=== PATIENT | male | born 1990 | race Caucasian/White ===

== ENCOUNTER 2016-12-05 18:34 | Observation (INO) | payer OTHER ==
[~2016-12-05] VITALS: Ht 170.2 cm; Wt 67.1 kg
[2016-12-05 18:40] VITALS: BP 141/80; PULSE 78; RESP 16; O2SAT 99
[2016-12-05 19:42] LABS: BASOPHILS % (AUTO) 0.1 % (0-3); EOSINOPHILS % (AUTO) 1.1 % (0-5); Mean Corpuscular Hemoglobin 30.9 pg (27.0-35.0); Mean Corpuscular Volume 85.3 fL (81-100); Platelet Count 176 bil/L (150-400)
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
[2016-12-05 20:01] LABS: TROPONIN T < 0.010 ug/L (0.0-0.011)
[2016-12-05 20:04] LABS: Magnesium 1.9 mg/dL (1.6-2.6)
--- NOTE | 2016-12-05 20:12 | DRSVH ---
PROCEDURE: X-RAY CHEST ONE VIEW, PORTABLE ([id number]) INDICATIONS: CHEST PAIN TECHNIQUE: One view of the chest was acquired. COMPARISON: 11/07/14. FINDINGS: Surgical changes and devices: None. Lungs and pleura: No pleural effusions or pneumothorax. Lungs are clear. Mediastinum: Mediastinal contours appear normal. Heart size is normal. Bones and chest wall: No suspicious bony lesions. Overlying soft tissues appear unremarkable. IMPRESSION: 1. No acute cardiopulmonary disease. Dictated by: Paxton Freitas M.D. on 12/05/2016 at 20:10 Approved by: Paxton Freitas M.D. on 12/05/2016 at 20:10
[2016-12-05] MEDS ORDERED: HYDROmorphone 0.5 mg/0.5 mL iSecure Syringe IVPUSH ONE (20:40)
[2016-12-05] MEDS ORDERED: Ondansetron 2 mg/mL 2 mL Inj IVPUSH ONE (20:40)
[2016-12-05 20:56] VITALS: BP 140/75; PULSE 71; RESP 14; O2SAT 97
[2016-12-05] MEDS ORDERED: Ondansetron 2 mg/mL 2 mL Inj IVPUSH PRN (21:10)
[2016-12-05] MEDS ORDERED: Alum-Mag Hydrox-Simeth 30 mL Suspension PO PRN (21:10)
[2016-12-05] MEDS ORDERED: Polyethylene Glycol (PEG) 17 Gm Powder PO PRN (21:10)
[2016-12-05 22:34] VITALS: PULSE 80
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
[2016-12-06 01:46] VITALS: BP 126/62; PULSE 69; RESP 18; O2SAT 100
[2016-12-06 04:25] VITALS: BP 118/71; PULSE 53; RESP 16; O2SAT 100
--- NOTE | 2016-12-06 04:45 | NUR ---
Admit to [facility] received phone report from ED at 2140. pt arrived to floor at 2201 per gita, able to ambulate to bed, pt accompanied by or scrub tech and significant other, pt a/o x4, able to make needs known, vitals taken stable, telemetry leads on, noted 20G saline locked IV at left AC, patent, oriented pt to room and call light, reinforced teaching on NPO status after Midnight for am ECHO, qhrly checks, call light in reach.
--- NOTE | 2016-12-06 05:04 | NUR ---
Cardiac Rhythm at 0, received call from telecommunication equipment repairer, informed of change in cardiac rhythm Sinus with HR at 38-40's 424, vitals checked, within baseline, pt denies pain and discomfort, at 0, received call from telecommunication equipment repairer, pt's rhythm junctional with HR at 60, 436, RT in 12 lead EKG done, showing sinus with LBBB HR at 63, pt denies any chest pain/discomfort/sob, instructed to call right away, call light in reach.
[2016-12-06 06:15] VITALS: BP 132/76; PULSE 71; RESP 16; O2SAT 99
[2016-12-06 08:42] LABS: Mean Corpuscular Hemoglobin 30.6 pg (27.0-35.0); Mean Corpuscular Volume 85.4 fL (81-100)
--- NOTE | 2016-12-06 08:45 | NUR ---
patient transferred to [facility] for stress test. mine technician informed.
[2016-12-06 09:21] LABS: Magnesium 2.2 mg/dL (1.6-2.6)
[2016-12-06 10:02] VITALS: PULSE 72
[2016-12-06 11:33] VITALS: BP 128/75; PULSE 76; RESP 18; O2SAT 95
--- NOTE | 2016-12-06 11:33 | NUR ---
patient returned from [facility]. cardiac monitor technician notified.
--- NOTE | 2016-12-06 14:24 | DRSVH ---
PROCEDURE: 1 DAY PHARMACOLOGICAL STRESS TEST Rest and pharmacological stress myocardial perfusion SPECT with gated imaging and ejection fraction RADIOPHARMACEUTICAL: 8.7 mCi Tc-99m tetrafosmin IV at rest and a 4.6 mCi Tc-99m tetrafosmin IV at pea k effect of pharmacological stress. A [id number] was performed. INDICATIONS: 26-year-old male with chest pain and abnormal EKG (left bundle-branch block). TECHNIQUE: Radiopharmaceutical was injected at peak stress test, and also at rest. SPECT images wer e obtained. SPECT myocardial perfusion images were displayed in short axis, horizontal long axis, an d vertical long axis views. Gated images were reviewed using [employer] software. COMPARISON: None. CARDIAC STRESS: A pharmacologic stress test was performed under the supervision of an attending staff, using an infus ion of [employer]. Hemodynamic data: There is normal blood pressure and heart rate response to pharmacologic stress. Symptoms: The patient denied anginal chest pain. Aminophylline: 100 mg IV. EKG: No diagnostic changes of ischemia; no ectopy. FINDINGS: Raw data: There is good myocardial uptake of radiotracer. No significant motion artifacts. Left ventricle function: Gated images demonstrate normal left ventricular wall thickening. There is septal dyskinesia. No transient ischemic dilation. Left ventricle resting end diastolic volume is n ormal. Left ventricle stress ejection fraction is 53%; normal range is above 45%. Myocardial perfusion: There is normal distribution of activity in the right and left ventricular gabriel cardium. No fixed or reversible perfusion defects. IMPRESSION: 1. Normal myocardial perfusion images. 2. Normal left ventricular volume and systolic function. 3. No chest pain. Non-diagnostic EKG for ischemia. PQRS ATTESTATIONS: Measure 322 - Is this imaging test primarily performed on a low-risk surgery patient for preoperative evaluation within 30 days preceding their low-risk non-cardiac surgery? Low-risk surgery is defined as cardiac or myocardial infarction less than 1%, including (but not limited to) endoscopic pr ocedures, superficial procedures, cataract surgery, and excisional breast surgery: Answer: No Measure 323 - Is this imaging test performed primarily for the monitoring of an asymptomatic patient who had percutaneous coronary intervention on the visit date or within 2 years of the visit date? An swer: No Measure 324 - Is this imaging test performed primarily for the initial detection and risk assessment on an asymptomatic, low coronary heart disease patient? Low CHD risk definition = clinicians should consider the maximum number of available patient factors used to estimate risk based on [place] (A TP III criteria), typically age, gender, diabetes, smoking status, and use of blood pressure medicati on, and integrate age appropriate estimates for missing elements, such as LDL or standard blood press ure. Answer: No Dictated by: Elyse Robb M.D. on 12/06/2016 at 14:17 Approved by: Elyse Robb M.D. on 12/06/2016 at 14:23
--- NOTE | 2016-12-06 15:33 | NUR ---
Social Work Note - Screening: D/A: The Pt is a 26 y/o male that was admitted under observation status for CP resolved/left bundle branch block. The Pts PCP is MD Wero Hatfield and his insurance is [employer]. EMR reviewed. SW met with the Pt to explain role and discuss discharge planning, SW telephone number written on white board. The Pt does not have an Advanced Directive, paperwork declined. The Pt lives independently with his family in [place]. Echo and stress test results pending. The Pt denies any needs at this time. SW to follow if needs arise. P: The Pt will likely discharge home when medically stable with family providing POV transportation. The Pt denies any needs at this time. SW to follow if needs arise. Melody Scales MSW Loader Operator YAHIR Arauz
--- NOTE | 2016-12-06 15:54 | DRSVH ---
[facility] [address] [place] [address] Echocardiogram Report Name: RIKI BARAHONA SStudy Date: 12/06/2016 Height: 67 in Hospital Exam Location: [facility] Weight: 150 lb Gender: Male BSA: 1.8 m2 : 1990 Age: 26 yrs BP: 118/81 mmHg Reason For Study: Chest pain, LBBB Ordering Physician: HOSPITALIST [facility] Referring Physician: JIMI ALEXANDER Interpretation Summary The left ventricle is normal in size. Left ventricular systolic function is borderline reduced. Left ventricular ejection fraction is estimated to be 50%. There is a significant dyssynchronous contraction pattern, consistent with a conduction abnormality. There are no focal wall motion abnormalities. The right ventricle is normal in size and function. The right ventricular systolic pressure is estimated at 25 mmHg assuming a right atrial pressure of 3 mm Hg. The left atrial size is normal. There is no significant valvular heart disease. The aortic root is normal size. Procedure: A two-dimensional transthoracic echocardiogram with color flow and Doppler was performed. The study quality was technically good. There is no prior echocardiogram noted for this patient. The patient had a bundle branch block rhythm during the exam. Left Ventricle: The left ventricle is normal in size. There is normal left ventricular wall thickness. Left ventricular systolic function is borderline reduced. Left ventricular ejection fraction is estimated to be 50%. There is a significant dyssynchronous contraction pattern, consistent with a conduction abnormality. There are no focal wall motion abnormalities. Assessment of diastolic parameters indicates normal left ventricular diastolic function and normal filling pressures. Right Ventricle: The right ventricle is normal in size and function. Atria: The left atrial size is normal. Right atrial size is normal. The interatrial septum is intact with no evidence for an atrial septal defect. Mitral Valve: The mitral valve is normal. There is trace mitral regurgitation. Aortic Valve: The aortic valve is normal in structure and function. No aortic regurgitation is present. Tricuspid Valve: The tricuspid valve is normal. There is mild tricuspid regurgitation. The right ventricular systolic pressure is estimated at 25 mmHg assuming a right atrial pressure of 3 mm Hg. Pulmonic Valve: The pulmonic valve leaflets are thin and pliable; valve motion is normal. There is trace pulmonic regurgitation. There is no significant valvular heart disease. Great Vessels: The aortic root is normal size. The dimensions of the ascending aorta are normal. The pulmonary artery is normal size. The IVC is of normal diameter and collapses greater than 50% with a sniff. This suggests a low right atrial pressure of 3 mm Hg. Pericardium/ Pleura There is no pericardial effusion. There is no pleural effusion. MMode/2D Measurements & Calculations LVIDd: 4.0 cm RA long axis LVOT diam: 2.2 cm LVIDs: 3.2 cm LA A2 area: 15.8 cm Ao root diam FS: 20.6 % LA A4 area: 14.6 cm RA area EPSS: 0.37 cm LA length (vol) asc Aorta Diam IVSd: 0.97 cm : 15.5 cm LVPWd: 0.93 cm LA vol: 44.5 ml RA vol Ao Arch Diam (Prox LA vol index : 48.6 ml Trans): 2.4 cm RA : 27.2 mm2 IVC diam: 1.5 cm LV aldridge. diameter/BSA LV sys. diameter/BSA RVD1 (basal) RVD2 (mid): 2.9 cm (cm/m^2): 2.2 (cm/m^2): 1.8 TAPSE: 1.4 cm Doppler Measurements & Calculations Ao V2 max MV E max jason MV E/A: 1.7 TR max jason : 132.7 cm/sec : 68.3 cm/sec Med Peak E' Jason : 233.6 cm/sec Ao max P.0 mmHg MV A max jason TR max PG Ao mean P.9 mmHg : 39.1 cm/sec E/E' med: 10.0 : 21.8 mmHg LVOT Max Jason Lat Peak E' Jason PA V2 max : 104.5 cm/sec : 95.1 cm/sec E/E' lat: 5.6 PA mean PG CHERI(I,D): 2.8 cm E/e' average: 7.8 : 1.6 mmHg sev ratio: 0.73 MV dec time: 0.13 sec Ao V2 mean LV V1 max PG PA V2 mean : 94.5 cm/sec : 58.3 cm/sec Ao V2 VTI LV V1 VTI: 18.6 cm PA pr(Accel) : 29.2 mmHg CHERI(V,D): 3.1 cm2 CHERI indexed to BSA (cm^2/m^2): 1.6 Reading Physician:PM
--- NOTE | 2016-12-06 16:59 | PCM.DIMED ---
Discharge Instructions Date of Service Dec 06, 2016 Dates of Hospitalization Dec 05, 2016 at 21:11 Discharge Diagnosis Discharge Diagnosis Chest pain, probable Auhfn-Ydzsnphdm-Aaaiq syndrome/conduction abnormality Test Results Echocardiogram shows conduction delay, treadmill Myoview stress test normal no evidence of ischemia Diet No restrictions Activity No restrictions Call your provider Other (palpitations) Patient Instructions Follow-up Provider: [facility] Follow-up with PCP in: 1 week Provider: Olivier Arias MD Follow-up in: Other (call) Attending's Statement This becomes a significant abnormality if you are beginning to experience palpitations, if that is happening go to the emergency room. Ho Rodriguez MD Dec 06, 2016 16:59
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
== END 2016-12-06 19:45 | disposition home or self-care (01) ==
LOC: SED 18:34 → MOC 21:11
PROVIDERS: ADMIT Hospitalist; ATTEND Hospitalist
DX: I45.6 Pre-excitation syndrome (principal); R07.9 Chest pain, unspecified; R03.0 Elevated blood-pressure reading, without diagnosis of hypertension; I44.7 Left bundle-branch block, unspecified; F17.210 Nicotine dependence, cigarettes, uncomplicated; F12.90 Cannabis use, unspecified, uncomplicated
CPT/HCPCS: 36415; 71010; 78452; 80053; 82550; 83735; 83880; 84439; 84443; 84484; 85025; 85027; 85378; 93005; 93017; 96374; 96375; 96376; 99285; A9502; C8929; G0378; G0480; J0280; J1170; J2270; J2405; J2785

== ENCOUNTER 2017-01-09 03:24 | Emergency (ER) | payer OTHER ==
[~2017-01-09] VITALS: Ht 170.2 cm; Wt 69.5 kg
[2017-01-09 03:28] VITALS: BP 133/81; PULSE 67; RESP 18; O2SAT 99
--- NOTE | 2017-01-09 03:45 | ED.REPORT ---
HPI-General Illness Date of Service January 09, 2017 ED Provider: Doug Donnelly MD Pt is a 26 y.o. male with hx of LBBB who presents to the ED c/o intermittent palpitations onset 0100 today with 4 episodes, each episode lasting less than 30 seconds. He states that the palpitations woke him up from his sleep. He was seen yesterday at for similar episodes and they told him to call EMS if the episodes occurred again. He reports associated lightheadedness, SOB, and chest pain. Pt also states that he has an appointment with Dr. Durham, Cardiology, this Sunday. Nursing Notes Stated Complaint: FAST HEART BEAT, HEART PROBLEMS Chief Complaint: Dysrhythmia/Cardiac Nursing Notes Reviewed: Yes Allergies: Coded Allergies: No Known Allergies (Verified Allergy, Unknown, 12/05/16) No Active Prescriptions or Reported Meds General Time Seen by MD: 03:44 Chief Complaint Other (Palpitations) Hx Obtained From: Patient Arrived By: Walk-in Sudden in Onset?: Yes Onset Occurred: 1 - 4 hours ago Symptom Duration: Intermittent Severity: Current: No pain currently Severity: Maximum: No pain Recent Healthcare: Recent doctor visit, Recent hospitalization, Recent testing Similar Sx Previous: Yes Past Medical History Past Medical History Left bundle branch block Past Surgical History None reported. Smoking History Current Some Day Smoker Social History Other Social History: Good social support, Lives with children, Local resident Ambulatory Status Independent Review of Systems Full Review of Systems Respiratory: Reports: Shortness of breath Cardiovascular: Reports: Chest pain, Palpitations Neurologic: Reports: Lightheaded Complete sys rev & neg: except as marked. Physical Exam Vital Signs Vital Signs Date Time Temp Pulse Resp B/P Pulse Ox O2 Delivery O2 Flow Rate FiO2 01/09/17 05:50 62 18 129/81 96 Room Air 01/09/17 05:33 59 23 95/81 97 Room Air 01/09/17 03:28 36.2 67 18 133/81 99 Room Air Initial VS: Reviewed, Vital signs normal Abdomen / GI: No distention Extremities: Vascular intact, Neuro intact Skin: Warm, Dry, No cyanosis Neurologic: Alert, Oriented, Nonfocal Psychiatric: Mood/affect normal, Behavior normal, Normal thought content General/Constitutional: Awake, Alert, No acute distress, Well appearing, Well developed, Well hydrated, Well nourished, Not toxic appearing Head / Eyes: Atraumatic, Normocephalic, PERRL Respiratory / Chest: Atraumatic, Breath sounds NL, Breath sounds = bilat, No respiratory distress Cardiovascular: Heart rate NL, Regular rhythm, Heart sounds NL, Peripheral circulation NL Interpretation & Diagnostics Lab Results Interpretation Result Diagram: 01/09/1741901/09/17419 Test 01/09/17 04:20 White Blood Count 5.7th/mm3 (3.8-10.1) Red Blood Count 4.80mil/mm3 (4.40-5.80) Hemoglobin 14.7g/dL (13.8-17.2) Hematocrit 41.3% (41.0-50.0) Mean Corpuscular Volume 86.0fL (81-100) Mean Corpuscular Hemoglobin 30.6pg (27.0-35.0) Mean Corpuscular Hemoglobin Concent 35.6% (32.0-37.0) Red Cell Distribution Width 12.4% (12.3-15.4) Platelet Count 150bil/L (150-400) Neutrophils (%) (Auto) 57.9% (40-74) Lymphocytes (%) (Auto) 26.7% (14-46) Monocytes (%) (Auto) 11.5% (4-12) Eosinophils (%) (Auto) 3.5% (0-5) Basophils (%) (Auto) 0.2% (0-3) Sodium Level 137mEq/L (134-144) Potassium Level 4.1mEq/L (3.5-5.2) Chloride Level 100mEq/L (97-108) Carbon Dioxide Level 26mmol/L (18-29) Blood Urea Nitrogen 13mg/dL (6-20) Creatinine 0.81mg/dL (0.76-1.27) Estimat Glomerular Filtration Rate 122mL/min (>59) Glucose Level 101mg/dL (60-99) Calcium Level 9.6mg/dL (8.5-10.1) Magnesium Level 2.1mg/dL (1.6-2.6) Total Bilirubin 0.4mg/dL (0.0-1.2) Aspartate Amino Transf (AST/SGOT) 31U/L (0-50) Alanine Aminotransferase (ALT/SGPT) 25U/L (0-44) Alkaline Phosphatase 88U/L (25-150) Total Protein 7.0g/dL (6.4-8.4) Albumin 4.2g/dL (3.4-5.0) Thyroid Stimulating Hormone (TSH) 1.910uIU/mL (0.450-4.500) Free Thyroxine 1.26ng/dL (0.82-1.77) Hold Chavez Top Tube Received (Received) Lab values outside NL range: no clinical significance. ECG Interpretation ECG Interpretation: LBBB Time: 05:32 Interpreted by: ED physician Normal ECG Interpretation: Normal rate (73), Normal sinus rhythm Re-Eval/Medical Decision Med Decision/Clinical Course 27-year-old male who has a history of a left bundle-branch block and is in the midst of a cardiac evaluation, scheduled to see Dr. Durham on Sunday. He complained of short episodes of tachycardia several times today. He had no ectopy the entire time that he was here in the emergency room. His EKG does show a left bundle branch block without other abnormalities. His labs are normal. He has been discharged home to resume his regular follow-up plan. If he has sustained tachycardia or any other symptoms he will return to the emergency room. Source of Hx: Old records Time of Eval: 05:16 Re-Evaluation/Progress Note: Pt rechecked. Discussed plan for EKG, pt understands and agrees with plan. 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 No tachycardia cardia was noted on the conveyor monitor. Your labs are all normal to include electrolytes and thyroid panel. Keep your appointment as scheduled to get the event monitor. Return here if you have sustained tachycardia. Referrals: [facility] (PCP) Scribe Attestation Portions of this note were transcribed by Jose Begum. I, personally performed the history, physical exam and medical decision-making; I reviewed and confirmed the accuracy of the information in the transcribed note. Signed by: Sandra Carter, 01/09/17 and 0297. copies to: Myles Durham MD; [facility] Doug Donnelly MD January 09, 2017 03:45 JOSE BEGUM January 09, 2017 03:54
[2017-01-09 04:28] LABS: BASOPHILS % (AUTO) 0.2 % (0-3); EOSINOPHILS % (AUTO) 3.5 % (0-5); MONOCYTES % (AUTO) 11.5 % (4-12); Mean Corpuscular Hemoglobin 30.6 pg (27.0-35.0); NEUTROPHILS % (AUTO) 57.9 % (40-74); Platelet Count 150 bil/L (150-400)
[2017-01-09 04:59] LABS: Magnesium 2.1 mg/dL (1.6-2.6)
[2017-01-09 05:33] VITALS: BP 95/81; PULSE 59; RESP 23; O2SAT 97
[2017-01-09 05:50] VITALS: BP 129/81; PULSE 62; RESP 18; O2SAT 96
== END 2017-01-09 05:42 | disposition home or self-care (01) ==
LOC: SED 03:24
DX: I42.8 Other cardiomyopathies (principal); I47.2 Ventricular tachycardia; I44.7 Left bundle-branch block, unspecified; F17.200 Nicotine dependence, unspecified, uncomplicated

== ENCOUNTER 2017-03-21 01:34 | Day surgery (SDC) | payer OTHER ==
[~2017-03-21] VITALS: Ht 170.2 cm; Wt 76.6 kg
[2017-03-21] VITALS (12 sets, daily range): BP systolic 120–137; BP diastolic 40–79; PULSE 61–73; RESP 13–20; O2SAT 95–100
[2017-03-21] MEDS ORDERED: Rocuronium 10 mg/mL 5 mL Inj ONE (01:35)
[2017-03-21] MEDS ORDERED: Dexamethasone 4 mg/mL Inj ONE (01:35)
[2017-03-21] MEDS ORDERED: Ondansetron 2 mg/mL 2 mL Inj ONE (01:35)
[2017-03-21] MEDS ORDERED: Phenylephrine/NS 100 mCg/mL 10 mL Syringe IVPUSH ONE (01:35)
[2017-03-21] MEDS ORDERED: Propofol 10,000 mCg/mL 20 mL Inj ONE (01:35)
[2017-03-21] MEDS ORDERED: Glycopyrrolate 0.2 MG/ML 1mL Inj ONE (01:35)
[2017-03-21] MEDS ORDERED: Neostigmine 1 mg/mL 10 mL Inj ONE (01:35)
[2017-03-21] MEDS ORDERED: fentaNYL-PF 50 mCg/mL 2 mL Inj ONE (01:35)
[2017-03-21] MEDS ORDERED: Lactated Ringer's 1,000 ML IV SCH ×2 (05:00→07:41)
[2017-03-21 06:45] LABS: Mean Corpuscular Hemoglobin 30.9 pg (27.0-35.0); NEUTROPHILS % (AUTO) 62.4 % (40-74)
[2017-03-21 06:49] LABS: BASOPHILS % (AUTO) 0.1 % (0-3); EOSINOPHILS % (AUTO) 2.4 % (0-5); MONOCYTES % (AUTO) 9.3 % (4-12); Mean Corpuscular Volume 84.1 fL (81-100); Platelet Count 162 bil/L (150-400)
[2017-03-21] MEDS ORDERED: 0.9% Sodium Chloride 1,000 ML IV SCH (06:52)
[2017-03-21] MEDS ORDERED: CeFAZolin Inj 2 GM in IV Premix 1 EACH IV SCH (06:55)
[2017-03-21 07:22] LABS: INR 0.95 ratio
[2017-03-21] MEDS ORDERED: Heparin 10,000 Unit/1,000 mL NS Premix IV ONE (07:38)
--- NOTE | 2017-03-21 07:40 | PCM.HPANE ---
Patient Data Surgeon Admitting Provider: Attending Provider:Myles Durham MD Primary Care Physician:Clinic,[facility] Residency Other Provider:Beny Coffman Anesthesia Reason for Visit Eablf-Gxgwacwqh-Jjvwx Syndrome Ht/WT & BMI Body Mass Index Allergies Coded Allergies: No Known Allergies (Verified Allergy, Unknown, 12/05/16) Past Anesthesia History Anesthesia History: Denies:: Abnormal Airway, Anesthesia Reactions, Difficult Intubation, Fam Anesthesia Reaction, Fam Malignant Hypertherm, Malignant Hyperthermia Diabetes History Hx Diabetes?: No MRSA MRSA: No Medications Hypertension Medication: No Home Meds Incl Beta Valentina: No No Active Prescriptions or Reported Meds History History of ENT Problems?: No HEENT History: Denies:: Abnormal Airway Cataracts Difficult Intubation Dysphagia Glaucoma Hearing Problem Sinus Problem TMJ Denture Type: None Teeth Condition: Within Normal Limits Hx of Heart Problems?: Yes Cardiovascular History: Positive for:: Chest Pain Heart Murmur Irregular Heartbeat Denies:: Congestive Heart Failure Hypertension Pacemaker Thrombophlebitis Other Cardiac History: WPW Hx of Respiratory Problem?: No Respiratory History: Denies:: Asthma COPD Chest Surgery Cough Dyspnea Emphysema Hemoptysis Oxygen Administration Pneumonia Pulmonary Embolism Tuberculosis Use of C-PAP Machine Use of Inhalers / NEBS Hx Neurologic Problems?: No Neurological History: Denies:: Alzheimer's Disease CVA Dementia Dizziness Headaches Multiple Sclerosis Parkinson's Disease Peripheral Neuropathy Seizures TIA Hx of GI Problems?: No Hx of Problems?: No Hx Musculoskeletal Problems?: No Hx of Psycho/Social Problems?: No Hx Surgeries?: No Hx Any Other Health Problems?: No History Blood Transfusions: Denies:: Blood Transfuse Reaction Blood Transfusions Hx Diabetes: No Hx Alcohol Use: NoHx Substance Use: Yes (Marijuana. Denies cocaine/heroin use) Smoking Status: Current Some Day Smoker Have You Smoked inLast 12 mo: No Stop/Bang GURDEEP Risk Assessment: Low Risk, <3 Yes Risk Assessment Category Category 1A: Patient has history of documented sleep apnea, and HAS NOT received any narcotic, sedative or anesthesia administration during this stay. Category 1B: Patient has history of documented sleep apnea, and HAS received any narcotic , sedative or anesthesia administration during this stay Category 2: Patient has SUSPECTED Obstructive Sleep Apnea, and HAS received any narcotic , sedative or anesthesia administration during this stay. Category 3: Patient has SUSPECTED Obstructive Sleep Apnea and HAS NOT received narcotic, sedative or anesthesia administration during this stay. Category 4: Outpatient in Procedural Areas with known sleep apnea or who screen positive for High Risk via the STOP/BANG questionnaire. Exam Exam General Appearance: Alert, Oriented X3, Cooperative, No Acute Distress HEENT/AIRWAY: MP 2 Lungs: Clear to Auscultation, Normal Air Movement Heart: Exam Unremarkable, Regular Rate/Rhythm, No Murmurs/Rubs/Gallops Meds/Labs/Diagnostics Labs Test 03/21/17 06:25 White Blood Count 6.8th/mm3 (3.8-10.1) Red Blood Count 5.11mil/mm3 (4.40-5.80) Hemoglobin 15.8g/dL (13.8-17.2) Hematocrit 43.0% (41.0-50.0) Mean Corpuscular Volume 84.1fL (81-100) Mean Corpuscular Hemoglobin 30.9pg (27.0-35.0) Mean Corpuscular Hemoglobin Concent 36.7% (32.0-37.0) Red Cell Distribution Width 12.7% (12.3-15.4) Platelet Count 162bil/L (150-400) Neutrophils (%) (Auto) 62.4% (40-74) Lymphocytes (%) (Auto) 25.7% (14-46) Monocytes (%) (Auto) 9.3% (4-12) Eosinophils (%) (Auto) 2.4% (0-5) Basophils (%) (Auto) 0.1% (0-3) Prothrombin Time 10.2sec (8.1-12.5) Prothromb Time International Ratio 0.95ratio Sodium Level 139mEq/L (134-144) Potassium Level 3.9mEq/L (3.5-5.2) Chloride Level 104mEq/L (97-108) Carbon Dioxide Level 24mmol/L (18-29) Blood Urea Nitrogen 16mg/dL (6-20) Creatinine 0.85mg/dL (0.76-1.27) Estimat Glomerular Filtration Rate 115mL/min (>59) Glucose Level 102mg/dL (60-99) Calcium Level 9.3mg/dL (8.5-10.1) Plan Impression Patient chart reviewed, patient interviewed and anesthestic plan with risks, benefits, and alternatives discussed, and informed consent obtained. NPO per Anesth. Guidelines: Yes ASA Physical Status: ASA3 Severe Disease Anesthetic Support Modalities: Arterial Line Anesthetic Plan: GA Bene/Risks/Altern/Consents: Yes HP Complete Prior to Induction: Yes Dandre Slater MD Mar 21, 2017 07:40
[2017-03-21] MEDS ORDERED: Lactated Ringer's 500 ML IV PRN (07:41)
[2017-03-21] MEDS ORDERED: Heparin 1,000 Unit/mL 10 mL Inj ONE (07:43)
[2017-03-21] MEDS ORDERED: 0.9% Sodium Chloride 1,000 ML ONE (07:43)
[2017-03-21] MEDS ORDERED: HYDROmorphone 1 mg/mL Inj IVPUSH PRN (07:45)
[2017-03-21] MEDS ORDERED: fentaNYL-PF 50 mCg/mL 2 mL Inj IVPUSH PRN (07:45)
[2017-03-21] MEDS ORDERED: EPHEDrine Sulfate 50 mg/mL Inj IVPUSH PRN (07:45)
[2017-03-21] MEDS ORDERED: Phenylephrine 10,000 mCg/mL Inj IVPUSH PRN (07:45)
[2017-03-21] MEDS ORDERED: Ondansetron 2 mg/mL 2 mL Inj IVPUSH PRN (07:45)
[2017-03-21] MEDS ORDERED: MetoCLOpramide 5 mg/mL 2 mL Inj IVPUSH PRN (07:45)
[2017-03-21] MEDS ORDERED: Atropine 0.4 mg/mL Inj IVPUSH PRN (07:45)
[2017-03-21] MEDS ORDERED: 0.9% Sodium Chloride 100 ML ONE (08:11)
--- NOTE | 2017-03-21 11:21 | PCM.ANEP1 ---
Post Anesthesia PACU Phase 1 Assessment Vital Signs VSS recorded by RN in recovery Vital Signs Date Time Temp Pulse Resp B/P Pulse Ox O2 Delivery O2 Flow Rate FiO2 03/21/17 06:00 36.8 66 15 120/76 Anesthetic Administered: GA Level of Alertness: Awake, talking NINO's with Equal Strength: Yes Pain: No Nausea or Vomiting: No CV Function & Hydration Stable: Yes Airway Device: Endotrachial Tube Oxygen Delivery: Simple Mask Lungs: Clear to Auscultation, Normal Air Movement PACU Phase 2 Assessment Complications: No Follow up Care: N/A Patient Instructions Provided: N/A Dandre Slater MD Mar 21, 2017 11:21
--- NOTE | 2017-03-21 12:37 | NUR ---
Kirby catheter removed per request of patient.He is intolerant of catheter as he reports a lot of burning along meatus.
--- NOTE | 2017-03-21 13:08 | NUR ---
Patient c/o soreness along left strnal border.Deep respirations does not change the quality of discomfort. Dr Durham called and informed through Chani Gold. Order received for morphine if needed, will do motrin as ordered and if not relieved then limited echo.
--- NOTE | 2017-03-21 14:00 | NUR ---
Pt inconsistent in account of chest discomfort as to whether it has gotten better or stayed at the same level. Dr kimble at bedside to assess patient, limited echo ordered.
--- NOTE | 2017-03-21 14:50 | PROCED ---
[address] [address] PROCEDURE NOTE PATIENT: RIKI BARAHONA : 1990 MR#: [id number] ADMIT: 03/21/2017 JOB ID: [id number] DATE OF SERVICE: 03/21/2017 PREOPERATIVE DIAGNOSIS(ES): 1. Supraventricular tachycardia. 2. Jvcqg-Yxmxvvwsb-Ykcbf syndrome. POSTOPERATIVE DIAGNOSIS(ES): 1. Supraventricular tachycardia. 2. Rbdwg-Bxfrwtvxv-Lvsew syndrome. 3. Para-Hisian accessory pathway. PROCEDURES PERFORMED: 1. Comprehensive electrophysiology study with left atrial pacing via the coronary sinus catheter. 2. Three-dimensional electroanatomic mapping using the CARTO 3 system. 3. Attempted bypass tract ablation. 4. Fluoroscopy. SURGEON: Piece Work Checker: Myles Durham MD, electrophysiology attending MACHINE PACKER: Milind Joy Mary Garute. ANESTHESIA: General endotracheal anesthesia was undertaken for this case. INDICATION: The patient is a pleasant 27-year-old man with a structurally normal heart, preexcitation on his EKG, and recurrent SVT. After discussion of the risks and benefits of catheter based mapping, he opted to proceed. PROCEDURE DESCRIPTION: Following informed consent, the patient was taken to the EP laboratory in the fasting nonsedated state, where he was prepped in the usual sterile fashion. The bilateral groins were prepped with 1% lidocaine. Then, using modified Seldinger technique, two 6-Cambodian sheaths were inserted into the left femoral vein and 7- and 8-Cambodian sheaths were inserted into the right femoral vein. Under fluoroscopic guidance, a deflectable decapolar catheter was advanced to the coronary sinus with the most proximal bipoles at the os of the sinus. A CRD 2 catheter was advanced to the His position and a Luis A quadripolar catheter was advanced to the RV apex. A comprehensive electrophysiology study was undertaken with right atrial pacing recording, right ventricular pacing recording, His bundle recording, and left atrial pacing recording via coronary sinus catheter. An F curve Smart Touch irrigated ablation catheter was brought to the field, advanced to the right atrium, and used to create a three-dimensional electroanatomic map of the right atrium, tricuspid anulus, and coronary sinus. The patient was in pre-excited sinus rhythm at the onset of the case. Retrograde conduction showed a concentric atrial activation pattern. Antegrade conduction showed bypass tract conduction until AV denisse conduction was lost. HV time was -42 msec. Taken together, this data was consistent with a right-sided septal bypass tract. The patient went into his clinical tachycardia spontaneously but never sustained long enough to undergo entrainment maneuvers. This was a regular narrow tachycardia at a cycle length of 420 msec with a VA time of 155 msec concentric atrial activation. I then started to map for fractionated electrograms along the right-sided posterior septum. Ablation lesions were placed in regions of fractionated electrocardiogram and early V. Ultimately more mapping was undertaken and a region of highly fractionated electrogram with earliest ventricular activation was noted in the midst of his His cloud. I mapped lower down and, in the posterior septum in the region of the slow pathway, I did find an early V signal. I placed one ablation lesion here for less than 10 seconds which led to conducted junctional beats but continued preexcitation thereafter. Given the proximity of his accessory pathways to the His bundle, I decided to perform no further ablation. All catheters and sheaths were removed. Manual pressure was performed for hemostasis. The patient was returned to the [facility] for monitoring and bedrest and discharge. COMPLICATIONS: None. ESTIMATED BLOOD LOSS: Negligible. FINDINGS: 1. Baseline rhythm was sinus with an RR interval of 1057 msec, CO 61 msec, QRS 171 msec, QT 500 msec. 2. Intracardiac intervals: AH interval 106 msec. HV -42 msec. 3. Retrograde conduction: VA Wenckebach is less than 280 msec. Atrial activation is concentric. Ventricular ERP is 250 msec at a [address]. 4. Antegrade conduction: AV Wenckebach occurred at 280 msec. AV ERP is 310 msec with a [address] He was maximally pre-excited until conduction to the ventricle was lost. 5. Para-Hisian accessory pathway as described above. Not the subject of ablation. 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 Given the proximity to the His bundle, no ablation was performed. PLAN: 1. Bedrest x4 hours. 2. Metoprolol succinate 25 mg twice daily from now. 3. Follow up with me in clinic in four weeks. 4. Consideration for cryoablation if symptoms recurrent on medical therapy. ATTENDING STATEMENT: Myles Durham MD, electrophysiology attending, was present for and supervised/performed all aspects of this procedure.
--- NOTE | 2017-03-21 15:17 | NUR ---
Limited echo completed, read by Dr Durham, negative for effusion.Patient may be discharged. Pt assisted off bedrest to bathroom where he voided, states burning has decreased jacqueline. once midstream.
[2017-03-21] MEDS ORDERED: METO25TA99 PO (15:29)
--- NOTE | 2017-03-21 15:40 | NUR ---
Discharge instructions reviewed.Patient has been ambulatory since 14:15. Bilateral groin sites dry and intact, no hematoma or bleeding. Opsite dressings left in place and pt encouraged to shower tomorrow then remove after.
--- NOTE | 2017-03-21 16:02 | DRSVH ---
[facility] [address] [place] [address] Echocardiogram Report Name: RIKI BARAHONA SStudy Date: 03/21/2017 Height: 67 in Hospital Exam Location: [facility] Weight: 170 lb Gender: Male BSA: 1.9 m2 : 1990 Age: 27 yrs BP: 124/79 mmHg Reason For Study: R/O PERICARDIAL EFFUSION Ordering Physician: Performed By: Mio Chavez Interpretation Summary There is no pericardial effusion. Procedure: A two-dimensional transthoracic echocardiogram with color flow and Doppler was performed in limited views only. The study quality was technically good. Pericardium/ Pleura There is no pericardial effusion. Reading Physician:GEORGETTE
== END 2017-03-21 23:59 | disposition home or self-care (01) ==
LOC: SOUO 01:34
PROVIDERS: ATTEND Internal Medicine Cardiovascular Disease
DX: I45.6 Pre-excitation syndrome (principal); I47.1 Supraventricular tachycardia
CPT/HCPCS: 36415; 80048; 85025; 85610; 93005; 93613; 93621; 93653; C1730; C1732; C8924; J1100; J1644; J2250; J2370; J2405; J2710; J3010; J7030